=== PATIENT | female | born 1985 ===

== ENCOUNTER 2017-12-01 13:30 | Inpatient (IN) | payer OTHER ==
[~2017-12-01] VITALS: Ht 172.7 cm; Wt 100.2 kg
[2017-12-01] MEDS ORDERED: ASPIR 8181 MG PO (15:56)
[2017-12-01] MEDS ORDERED: LABETALOL HCL100 MG PO (15:57)
== END 2017-12-08 13:10 | DRG 766 ==
LOC: OB/GYN 12-06 09:47 → O/R 12-06 09:47 → LDR 12-06 11:15 → OB/GYN 12-06 19:29
PROVIDERS: Obstetrics & Gynecology
PROC: 4A1HXCZ Monitoring of Products of Conception, Cardiac Rate, External Approach (ICD-10-PCS; 2017-12-06)
PROC: 0UB70ZZ Excision of Bilateral Fallopian Tubes, Open Approach (ICD-10-PCS; 2017-12-06)
PROC: 0UB10ZZ Excision of Left Ovary, Open Approach (ICD-10-PCS; 2017-12-06)
PROC: 0UB00ZX Excision of Right Ovary, Open Approach, Diagnostic (ICD-10-PCS; 2017-12-06)
PROC: 0UB90ZX Excision of Uterus, Open Approach, Diagnostic (ICD-10-PCS; 2017-12-06)
PROC: 4A033R1 Measurement of Arterial Saturation, Peripheral, Percutaneous Approach (ICD-10-PCS; 2017-12-06)
PROC: 10D00Z1 Extraction of Products of Conception, Low, Open Approach (ICD-10-PCS; principal; 2017-12-06 11:15)
DX: O34.211 Maternal care for low transverse scar from previous cesarean delivery (principal); O75.82 Onset (spontaneous) of labor after 37 completed weeks of gestation but before 39 completed weeks gestation, with delivery by (planned) cesarean section; O34.83 Maternal care for other abnormalities of pelvic organs, third trimester; N83.292 Other ovarian cyst, left side; N80.1 Endometriosis of ovary; N80.0 Endometriosis of uterus; Z30.2 Encounter for sterilization; Z3A.39 39 weeks gestation of pregnancy; Z37.0 Single live birth